=== PATIENT | male | born 1960 | race Caucasian/White ===

== ENCOUNTER 2020-04-10 08:44 | Observation (INO) ==
[2020-04-10] MEDS ORDERED: ENOXAPARIN 80 MG/0.8 ML SYRINGE SUBCUT ONE (09:12)
[2020-04-10] MEDS ORDERED: NITROGLYCERIN 2% OINT 1 INCH/GM PACK TOP STA (09:12)
[2020-04-10] MEDS ORDERED: NITROGLYCERIN 2% OINT 1 INCH/GM PACK TOP ONE (09:12)
[2020-04-10] MEDS ORDERED: ONDANSETRON 4 MG/2 ML VIAL IV STA (09:12)
[2020-04-10] MEDS ORDERED: MORPHINE 4 MG/1 ML VIAL IV ONE (09:12)
[2020-04-10] MEDS ORDERED: ENOXAPARIN 100 MG/ML SYRINGE SUBCUT STA (09:12)
[2020-04-10] MEDS ORDERED: MORPHINE 4 MG/1 ML VIAL IV STA (09:12)
[2020-04-10] MEDS ORDERED: ASPIRIN 325 MG TABLET PO STA (09:12)
[2020-04-10] MEDS ORDERED: ONDANSETRON 4 MG/2 ML VIAL IV ONE (09:12)
[2020-04-10 09:21] LABS: Basophils # 0.1 10*3/uL (0.0-0.2); Basophils % 1.1 % (0.0-0.8); Eosinophils # 0.2 10*3/uL (0.0-0.87); Eosinophils % 3.4 % (0.00-10.9); Hematocrit 37.3 VOL% (42.0-52.0); Hemoglobin 11.2 GM/DL (14.0-18.0); Immature Granulocytes % 0.5 %; Immature Granulocytes Absolute 0.03 #; Lymphocytes # 1.5 10*3/uL (1.4-4.0); Lymphocytes % 23.7 % (21.2-54.2); Mean Corpuscular Volume 86.7 FL (87-102); Mean Platelet Volume 10.4 FL (9.6-12.0); Monocytes % 11.7 % (1.7-12.7); Neutrophils % 59.6 % (38.7-73.9); Platelet Count 174 T/CUMM (130-400); Red Cell Distribution Width 18.2 % (9.3-17.3); White Blood Count 6.4 T/CUMM (4-12)
[2020-04-10 09:32] LABS: PT Patient Result 10.5 SECS (9.8-11.9); Partial Thromboplastin Time 26.3 SECS (23.9-33.8)
[2020-04-10 09:53] LABS: Albumin 3.3 G/DL (3.4-5.0); Bilirubin,Total 0.6 MG/DL (0.2-1.0); Calcium 8.9 MG/DL (8.5-10.1); Total Protein 7.1 G/DL (6.4-8.3)
[2020-04-10] MEDS ORDERED: ACETAMINOPHEN 325 MG TABLET PO PRN (10:59)
[2020-04-10] MEDS ORDERED: DEXTROSE 50% 25 GM/50 ML VIAL IV PRN (10:59)
[2020-04-10] MEDS ORDERED: GLUCAGON 1 MG VIAL IM PRN (10:59)
[2020-04-10] MEDS: NICOTINE 21 MG/24 HR PATCH TRANSDERM SCH (13:14)
[2020-04-10] MEDS ORDERED: NITROGLYCERIN SL 0.4 MG TABLET SL PRN (14:22)
[2020-04-10] MEDS ORDERED: DICYCLOMINE 20 MG TABLET PO PRN (14:27)
[2020-04-10] MEDS ORDERED: cloNIDine 0.1 MG TABLET PO PRN (14:27)
[2020-04-10] MEDS: MORPHINE 4 MG/1 ML VIAL IV PRN ×2 (14:34→20:43)
[2020-04-10] MEDS: ONDANSETRON 4 MG/2 ML VIAL IV PRN (20:44)
[2020-04-10] MEDS: TAMSULOSIN 0.4 MG CAPSULE PO SCH (20:44)
[2020-04-10] MEDS: SIMVASTATIN 20 MG TABLET PO SCH (20:44)
[2020-04-10] MEDS: risperiDONE 1 MG TABLET PO SCH (20:44)
[2020-04-11] MEDS: ONDANSETRON 4 MG/2 ML VIAL IV PRN ×2 (04:48→20:53)
[2020-04-11] MEDS: MORPHINE 4 MG/1 ML VIAL IV PRN ×4 (04:48→20:53)
[2020-04-11 08:10] LABS: Basophils # 0.1 10*3/uL (0.0-0.2); Basophils % 1.2 % (0.0-0.8); Eosinophils # 0.2 10*3/uL (0.0-0.87); Eosinophils % 4.4 % (0.00-10.9); Hematocrit 35.2 VOL% (42.0-52.0); Hemoglobin 10.8 GM/DL (14.0-18.0); Immature Granulocytes % 0.2 %; Immature Granulocytes Absolute 0.01 #; Lymphocytes # 1.3 10*3/uL (1.4-4.0); Lymphocytes % 25.7 % (21.2-54.2); Mean Corpuscular HGB Conc 30.7 GM/DL (32-36); Mean Corpuscular Volume 86.3 FL (87-102); Mean Platelet Volume 10.8 FL (9.6-12.0); Neutrophils % 56.5 % (38.7-73.9); Platelet Count 169 T/CUMM (130-400); Red Blood Count 4.08 MC/CUMM (3.8-5.5); Red Cell Distribution Width 17.9 % (9.3-17.3); White Blood Count 5.2 T/CUMM (4-12)
[2020-04-11 08:21] LABS: Albumin 3.1 G/DL (3.4-5.0); Bilirubin,Total 0.9 MG/DL (0.2-1.0); Calcium 8.8 MG/DL (8.5-10.1); Osmolality,Calculated 272.7 MOS/KG (273-304); Total Protein 6.6 G/DL (6.4-8.3)
[2020-04-11 08:54] LABS: Risk Ratio 2.38; VLDL CHOLESTEROL 26.6 MG/DL
[2020-04-11 08:59] LABS: % Iron Saturation 9.3 % (18-50)
[2020-04-11] MEDS: ENOXAPARIN 40 MG/0.4 ML SYRINGE SUBCUT SCH (09:06)
[2020-04-11] MEDS: NICOTINE 21 MG/24 HR PATCH TRANSDERM SCH (09:06)
[2020-04-11] MEDS: ASPIRIN EC 81 MG TABLET PO SCH (09:06)
[2020-04-11] MEDS ORDERED: MAGNESIUM SULF RIDER 2 GM in PREMIX 1 EACH IV PRN (10:25)
[2020-04-11] MEDS ORDERED: POTASSIUM CHLORIDE RIDER 10 MEQ in PREMIX 1 EACH IV PRN (10:25)
[2020-04-11] MEDS ORDERED: ALUM/MAG/SIMETH/LIDO VISC 1:1 30 ML BOTTLE PO ONE (10:34)
[2020-04-11] MEDS: FOLIC ACID 1 MG TABLET PO SCH (11:26)
[2020-04-11] MEDS: MULTIVITAMIN (CENTRUM) TABLET PO SCH (11:26)
[2020-04-11] MEDS: risperiDONE 1 MG TABLET PO SCH ×2 (11:27→20:52)
[2020-04-11] MEDS: PANTOPRAZOLE 40 MG TABLET PO SCH (11:27)
[2020-04-11] MEDS: THIAMINE 100 MG TABLET PO SCH (11:27)
[2020-04-11] MEDS: SERTRALINE 100 MG TABLET PO SCH (11:27)
[2020-04-11] MEDS: GABAPENTIN 100 MG CAPSULE PO SCH ×3 (11:27→20:52)
[2020-04-11] MEDS: KETOROLAC 10 MG TABLET PO SCH ×4 (11:38→23:45)
[2020-04-11] MEDS: ACETAMINOPHEN 325 MG TABLET PO SCH ×2 (11:38→20:52)
[2020-04-11] MEDS: FERROUS SULFATE 325 MG TABLET PO SCH ×2 (14:05→20:52)
[2020-04-11] MEDS: SIMVASTATIN 20 MG TABLET PO SCH (20:52)
[2020-04-11] MEDS: TAMSULOSIN 0.4 MG CAPSULE PO SCH (20:52)
[2020-04-12] MEDS: ONDANSETRON 4 MG/2 ML VIAL IV PRN ×2 (03:10→21:44)
[2020-04-12] MEDS: MORPHINE 4 MG/1 ML VIAL IV PRN ×3 (03:10→21:44)
[2020-04-12 05:35] LABS: Basophils % 0.6 % (0.0-0.8); Eosinophils # 0.2 10*3/uL (0.0-0.87); Eosinophils % 4.4 % (0.00-10.9); Hematocrit 36.6 VOL% (42.0-52.0); Immature Granulocytes % 0.2 %; Immature Granulocytes Absolute 0.01 #; Lymphocytes # 1.4 10*3/uL (1.4-4.0); Mean Corpuscular HGB Conc 30.1 GM/DL (32-36); Mean Corpuscular Volume 86.9 FL (87-102); Mean Platelet Volume 10.7 FL (9.6-12.0); Monocytes % 12.2 % (1.7-12.7); Neutrophils % 53.6 % (38.7-73.9); Platelet Count 158 T/CUMM (130-400); Red Blood Count 4.21 MC/CUMM (3.8-5.5); Red Cell Distribution Width 17.9 % (9.3-17.3); White Blood Count 4.8 T/CUMM (4-12)
[2020-04-12] MEDS: KETOROLAC 10 MG TABLET PO SCH ×4 (05:42→23:55)
[2020-04-12 06:00] LABS: Calcium 8.5 MG/DL (8.5-10.1); Osmolality,Calculated 272.8 MOS/KG (273-304)
[2020-04-12] MEDS ORDERED: LIDOCAINE 1% 20 ML VIAL ONE ×2 (06:53→10:40)
[2020-04-12] MEDS ORDERED: HEPARIN/NACL 0.9% 2 UNITS/ML 500 ML IV ONE ×2 (06:53→10:40)
[2020-04-12] MEDS: SODIUM CHLORIDE 0.45% 1,000 ML IV SCH ×2 (07:57→16:03)
[2020-04-12] MEDS: ENOXAPARIN 40 MG/0.4 ML SYRINGE SUBCUT SCH (08:37)
[2020-04-12] MEDS: ASPIRIN EC 81 MG TABLET PO SCH (08:37)
[2020-04-12] MEDS: risperiDONE 1 MG TABLET PO SCH ×2 (08:37→21:43)
[2020-04-12] MEDS: PANTOPRAZOLE 40 MG TABLET PO SCH (08:37)
[2020-04-12] MEDS ORDERED: DIAZEPAM 5 MG TABLET PO ONE (09:30)
[2020-04-12] MEDS ORDERED: diphenhydrAMINE CAP 25 MG CAPSULE PO ONE (09:30)
[2020-04-12] MEDS ORDERED: MIDAZOLAM 2 MG/2 ML VIAL ONE ×2 (10:46→10:56)
[2020-04-12] MEDS ORDERED: fentaNYL 100 MCG/2 ML VIAL ONE (10:47)
[2020-04-12] MEDS: FERROUS SULFATE 325 MG TABLET PO SCH ×2 (12:54→21:43)
[2020-04-12] MEDS: ACETAMINOPHEN 325 MG TABLET PO SCH ×2 (12:54→21:44)
[2020-04-12] MEDS: GABAPENTIN 100 MG CAPSULE PO SCH ×3 (12:54→21:43)
[2020-04-12] MEDS: FOLIC ACID 1 MG TABLET PO SCH (14:16)
[2020-04-12] MEDS: NICOTINE 21 MG/24 HR PATCH TRANSDERM SCH (14:16)
[2020-04-12] MEDS: MULTIVITAMIN (CENTRUM) TABLET PO SCH (14:16)
[2020-04-12] MEDS: SERTRALINE 100 MG TABLET PO SCH (14:18)
[2020-04-12] MEDS: THIAMINE 100 MG TABLET PO SCH (14:18)
[2020-04-12 17:50] LABS: Apearance,Urine CLEAR (Clear); Bilirubin,Urine Negative (Negative); Blood, Urine Negative (Negative); Glucose,Urine (UA) Negative (Negative); Ketones,Urine Negative (Negative); Mucus,Urine Occasional /LPF (Occasional); Nitrite,Urine Negative (Negative); Protein,Urine Negative; RBC,Urine 1 /HPF (0-4); Squamous Epithelial Cell,Urine Occasional /HPF (0-10); Urine Color Yellow (Yellow); Urine Specific Gravity > 1.060 (1.001-1.035); WBC,Urine <1 /HPF (0-6)
[2020-04-12] MEDS: TAMSULOSIN 0.4 MG CAPSULE PO SCH (21:43)
[2020-04-12] MEDS: SIMVASTATIN 20 MG TABLET PO SCH (21:43)
[2020-04-13] MEDS: SODIUM CHLORIDE 0.45% 1,000 ML IV SCH ×2 (00:22→08:16)
[2020-04-13 05:49] LABS: Basophils % 0.7 % (0.0-0.8); Eosinophils # 0.2 10*3/uL (0.0-0.87); Eosinophils % 3.8 % (0.00-10.9); Hematocrit 33.3 VOL% (42.0-52.0); Hemoglobin 9.9 GM/DL (14.0-18.0); Immature Granulocytes % 0.4 %; Immature Granulocytes Absolute 0.02 #; Lymphocytes # 1.3 10*3/uL (1.4-4.0); Lymphocytes % 27.8 % (21.2-54.2); Mean Corpuscular HGB Conc 29.7 GM/DL (32-36); Mean Corpuscular Volume 87.6 FL (87-102); Mean Platelet Volume 10.5 FL (9.6-12.0); Monocytes % 12.5 % (1.7-12.7); Neutrophils % 54.8 % (38.7-73.9); Platelet Count 148 T/CUMM (130-400); Red Cell Distribution Width 17.4 % (9.3-17.3); White Blood Count 4.5 T/CUMM (4-12)
[2020-04-13 06:05] LABS: Osmolality,Calculated 266.2 MOS/KG (273-304)
[2020-04-13] MEDS: KETOROLAC 10 MG TABLET PO SCH ×2 (06:16→11:14)
[2020-04-13] MEDS: MORPHINE 4 MG/1 ML VIAL IV PRN (06:17)
[2020-04-13] MEDS: ONDANSETRON 4 MG/2 ML VIAL IV PRN (06:17)
[2020-04-13 08:02] VITALS: BP 95/49
[2020-04-13] MEDS: FERROUS SULFATE 325 MG TABLET PO SCH (08:17)
[2020-04-13] MEDS: NICOTINE 21 MG/24 HR PATCH TRANSDERM SCH (08:17)
[2020-04-13] MEDS: ENOXAPARIN 40 MG/0.4 ML SYRINGE SUBCUT SCH (08:17)
[2020-04-13] MEDS: ASPIRIN EC 81 MG TABLET PO SCH (08:17)
[2020-04-13] MEDS: MULTIVITAMIN (CENTRUM) TABLET PO SCH (08:17)
[2020-04-13] MEDS: risperiDONE 1 MG TABLET PO SCH (08:17)
[2020-04-13] MEDS: GABAPENTIN 100 MG CAPSULE PO SCH (08:18)
[2020-04-13] MEDS: ACETAMINOPHEN 325 MG TABLET PO SCH (08:18)
[2020-04-13] MEDS: PANTOPRAZOLE 40 MG TABLET PO SCH (08:18)
[2020-04-13] MEDS: THIAMINE 100 MG TABLET PO SCH (08:18)
[2020-04-13] MEDS: SERTRALINE 100 MG TABLET PO SCH (08:18)
[2020-04-13] MEDS: FOLIC ACID 1 MG TABLET PO SCH (08:18)
== END 2020-04-13 14:55 ==
LOC: N.EDINP 08:44 → N.ED 08:44 → N.TELES 11:37
PROVIDERS: ADMIT Internal Medicine Geriatric Medicine; ATTEND Internal Medicine Geriatric Medicine